=== PATIENT | male | born 2000 | race Caucasian/White ===

== ENCOUNTER 2019-04-17 01:24 | Outpatient (CLI) | payer BC, SELFPAY ==
--- NOTE | 2019-04-17 10:15 | DI.US_ITS ---
EXAM: US SOFT TISS ABD WALL/LOW BACK CLINICAL HISTORY: mass of chest wall, R22.2. TECHNIQUE: Ultrasound was performed using standard protocol. COMPARISON: No exams were available for comparison FINDINGS: Sonographic assessment utilizing grayscale and color Doppler imaging was performed and targeted to th e area of clinical concern. There is a 1.4 x 1.2 x 1.7 cm lobulated hypoechoic mass in the soft tissues corresponding to the palp able abnormality. There is internal blood flow noted. No posterior acoustic enhancement or shadowin g is seen. The mass appears to lie within the musculature. IMPRESSION: 1.4 x 1.2 x 1.7 cm solid vascular mass corresponding to the palpable abnormality. The finding is non specific. An inflammatory or infectious process cannot be excluded. Metastasis or neoplasm cannot b e excluded. CT scan with contrast or MRI with contrast is recommended for further evaluation. DATA REPOSITORY:
== END 2019-04-17 01:44 ==
PROVIDERS: PCP Nurse Practitioner; Visit Provider Nurse Practitioner
DX: R22.2 Localized swelling, mass and lump, trunk (principal)
CPT/HCPCS: 76705

== ENCOUNTER 2019-04-28 02:15 | Outpatient (CLI) | payer BC, SELFPAY ==
--- NOTE | 2019-04-28 12:45 | DI.CT_ITS ---
EXAM: CT CHEST W CLINICAL HISTORY: EVALUATE MASS LT CHEST WALL, R22.2 TECHNIQUE: CT examination of the chest was performed with a bolus infusion of 70 cc of Omnipaque 350 . COMPARISON: US SOFT TISS ABD WALL/LOW BACK from 04/17/2019 FINDINGS: Images obtained through the upper abdomen show unremarkable appearance of visualized portions of live r, spleen, pancreas, adrenals, and kidneys. Gallbladder bile ducts are CT normal. There is no evidence of pulmonary embolic disease. Thoracic aorta and major branches appear intact. No mediastinal hilar adenopathy. Lungs are clear. Tracheobronchial tree appears intact. No pleura l effusion seen. No abnormality of the bony thorax. There is a rounded area of enhancement in the mid portion of the pectoralis major muscle on the left, this is somewhat heterogeneous enhancement and there is a deep feeding vessel noted. The lesion appe ars to measure about 19 millimeters in diameter. It appears to correspond in location to the previou sly described ultrasonographically identified mass seen on April 16 examination. IMPRESSION: The findings as described are indeterminate for the tissue type of the lesion, the possibility of mal ignancy cannot be excluded. Additional evaluation with biopsy is recommended.
[2019-04-28] MEDS: Normal Saline - Diluent 50 ML VIAL IV (13:40)
== END 2019-04-28 02:35 ==
PROVIDERS: PCP Nurse Practitioner; Visit Provider Nurse Practitioner
DX: R22.2 Localized swelling, mass and lump, trunk (principal); M62.89 Other specified disorders of muscle
CPT/HCPCS: 71260

== ENCOUNTER 2019-05-19 02:02 | Outpatient (CLI) | payer BC, SELFPAY ==
[2019-05-19] MEDS: Normal Saline Flush 10 ML SYR IVP (14:27)
[2019-05-19] MEDS: Gadoterate meglumine 20 ML VIAL 16 ML IVP (14:28)
--- NOTE | 2019-05-19 14:55 | DI.MRI_ITS ---
EXAM: MR CHEST WO/W CLINICAL HISTORY: growing vascular mass left chest, R22.2, ? [facility] TECHNIQUE: Multiplanar multisequence MRI of the cervical spine was performed. CONTRAST MATERIAL: IV Contrast: 16 ML of Dotarem contrast administered. COMPARISON: US SOFT TISS ABD WALL/LOW BACK from 04/17/2019 CT CHEST W from 04/28/2019 FINDINGS: There is an ovoid mass located within the medial left pectoral muscle. It measures 2.3 cm transverse by 1.6 x 1.7 cm. Appears to have increased in size when compared to the previous ultrasound. It sh ows intermediate signal on T1 weighted images and markedly high signal on T2 weighted images. It is fairly well-circumscribed mildly lobulated. It shows marked enhancement. There is a central non enh ancing focus measuring 3 millimeters versus vascular flow void. There is some edema extending around the central mass. It does not appear to represent a lipoma. No additional masses are identified. There is normal amount of residual thymic tissue. No pleural or pericardial effusions are seen. The marrow signal is normal where visualized. IMPRESSION: 2.3 centimeter markedly enhancing mass in the in the left pectoral muscle appears to have increased in size compared with previous ultrasound. Its borders are not definitely circumscribed. Tissue raul pling is recommended. DATA REPOSITORY:
--- NOTE | 2019-05-19 16:07 | DI.VRAD_ITS ---
PROCEDURE INFORMATION: Exam: MR Chest Without and With Contrast. Exam date and time: 05/19/2019 2:48 PM Age: 19 years old Clinical indication: Left-sided chest pain; Patient HX: Left sided anterior chest mass for 1 month, no trauma, marked with mri marker. TECHNIQUE: Imaging protocol: MR chest without and with intravenous contrast. 3D rendering: MIP and/or 3D reconstructed images were created by the technologist. Contrast material: DOTAREM; Contrast volume: 16 ml; Contrast route: IV; COMPARISON: CT CHEST W 04/28/2019 1:11 PM FINDINGS: Lungs: Unremarkable. Heart: Unremarkable as visualized. Pleural space: No pleural effusion within the [id number]. Bones/joints: Unremarkable. Soft tissues: There is an isointense T1 and hyperintense T2 well-circumscribed round lesion within the left pectoralis major muscle. This measures 17 mm x 15 mm x 16 mm. Mild wispy hyperintense T2 signal along the right and left lateral margins of this lesion. No significant signal loss of the lesion on the out of phase sequence to suggest a lipomatous component. There is a tiny 3 mm x 3 mm central hypointense T2 focus within the mass which is nonenhancing. The remainder of the mass is markedly and homogeneously hyperenhancing. The mass is located deep to the skin surface marker. No additional lesion is identified. IMPRESSION: Solid 17 mm mass within the left pectoralis major muscle. This could represent a peripheral nerve sheath tumor but does not have definitive imaging characteristics. Tissue sampling is recommended. Dictated and Authenticated by: Miriam Mccollum MD. Ordering:EDWARD Heaton MD
== END 2019-05-19 02:22 ==
PROVIDERS: PCP Nurse Practitioner; Visit Provider Surgery
DX: R22.2 Localized swelling, mass and lump, trunk (principal); M62.89 Other specified disorders of muscle
CPT/HCPCS: 71552

== ENCOUNTER 2020-01-31 17:16 | Outpatient (REF) | payer BC, SELFPAY ==
[2020-02-04 10:43] LABS: Campylobacter PCR Negative (Negative); Salmonella PCR Negative (Negative); Shiga Toxin PCR Negative (Negative); Shigella/Enteroinvasive Ecoli Negative (Negative)
== END 2020-01-31 17:36 ==
LOC: LBN 17:16
PROVIDERS: PCP Nurse Practitioner; Visit Provider Nurse Practitioner
DX: R19.5 Other fecal abnormalities (principal)
CPT/HCPCS: 87505; 87177